=== PATIENT | male | born 1960 | race Caucasian/White ===

== ENCOUNTER 2019-09-10 17:57 | Emergency (ER) | payer OTHER ==
[2019-09-10] MEDS ORDERED: HYDROmorphone 1 MG/ML Syringe IM ONE (19:00)
--- NOTE | 2019-09-10 19:06 | EDM.PDOC ---
ED HPI GENERAL MEDICAL PROBLEM - General Chief Complaint: Upper Extremity Injury/Pain Stated Complaint: LEFT WRIST INJURY Time Seen by Provider: 09/10/19 18:50 Source of Information: Reports: Patient, RN History Limitations: Reports: Other (no old records) - History of Present Illness INITIAL COMMENTS - FREE TEXT/NARRATIVE: 58 yo male from the [facility] fell off a step stool just before arrival breaking his fall with his outstretched L hand. Presents with L wrist pain associated with slight L thumb numbness. His drove him here. No other injuries. Onset: Today Onset Date: 09/10/19 Duration: Hour(s):, Constant Location: Reports: Upper Extremity, Left Quality: Reports: Ache Severity: Moderate Improves with: Reports: Rest Worsens with: Reports: Movement Context: Reports: Trauma Associated Symptoms: Reports: No Other Symptoms Treatments [employer]IPAL [employer]CHITECT: Reports: Other (see below) (none) Left Wrist Pain Score (Numeric/FACES): 9 - Related Data Allergies Allergy/AdvReac Type Severity Reaction Status Date / Time No Known Allergies Allergy Verified 09/10/19 18:15 Home Meds: Home Meds Amphetamine/Dextroamphetamine [Adderall XR] 40 mg PO DAILY 09/10/19 [History] Aspirin [Halfprin] 81 mg PO BID 09/10/19 [History] FLUoxetine HCl [Fluoxetine] 3 tab PO DAILY 09/10/19 [History] Folic Acid 1 tab PO BID 09/10/19 [History] buPROPion [Wellbutrin SR] 3 tab PO DAILY 09/10/19 [History] predniSONE 2 tab PO ASDIRECTED 09/10/19 [History] Past Medical History HEENT History: Reports: Impaired Vision Cardiovascular History: Reports: Bypass Respiratory History: Reports: Sleep Apnea Other Respiratory History: cpap Gastrointestinal History: Reports: None Musculoskeletal History: Reports: Back Pain, Chronic, RA, Other (See Below) Other Musculoskeletal History: DDD Psychiatric History: Reports: Anxiety, PTSD Endocrine/Metabolic History: Reports: Obesity/BMI 30+ Immunologic History: Reports: Other (See Below) - Infectious Disease History Infectious Disease History: Reports: Chicken Pox - Past Surgical History Head Surgeries/Procedures: Reports: None HEENT Surgical History: Reports: None Cardiovascular Surgical History: Reports: Coronary Artery Bypass Other Cardiovascular Surgeries/Procedures: 2018 triple bypass Respiratory Surgical History: Reports: None GI Surgical History: Reports: Appendectomy, Cholecystectomy, Hernia, Abdominal Endocrine Surgical History: Reports: None Musculoskeletal Surgical History: Reports: Carpal Tunnel, Shoulder Surgery, Other (See Below) Dermatological Surgical History: Reports: None Social & Family History - Tobacco Use Smoking Status *Q: Former Smoker Used Tobacco, but Quit: Yes Month/Year Tobacco Last Used: 2009 Second Hand Smoke Exposure: No - Caffeine Use Caffeine Use: Reports: Coffee, Soda - Recreational Drug Use Recreational Drug Use: No Review of Systems - Review of Systems Review Of Systems: See Below Constitutional: Reports: No Symptoms Eyes: Reports: No Symptoms Musculoskeletal: Reports: Joint Pain (L wrist) Skin: Reports: No Symptoms Neurological: Reports: Numbness (L thumb only) ED EXAM, GENERAL - Physical Exam Exam: See Below Exam Limited By: No Limitations General Appearance: Alert, WD/WN, No Apparent Distress Eye Exam: Bilateral Eye: Normal Inspection Ears: Normal External Exam, Hearing Grossly Normal Ear Exam: Bilateral Ear: Auricle Normal, Canal Normal Nose: Normal Inspection, No Blood Throat/Mouth: Normal Inspection, Normal Lips, Normal Oropharynx, Normal Voice Head: Atraumatic, Normocephalic Neck: Normal Inspection Respiratory/Chest: No Respiratory Distress, No Accessory Muscle Use Cardiovascular: Regular Rate, Rhythm Extremities: Joint Swelling (subtle deformity/swelling of L wrist), Limited Range of Motion (due to pain). No: Non-Tender, Redness Neurological: Alert, Oriented, CN II-XII Intact, Normal Cognition, Other ( slight subjective L thumb numbness. ) Psychiatric: Normal Affect, Normal Mood Skin Exam: Warm, Dry, Intact, Normal Color, No Rash Course - Vital Signs Last Recorded V/S: Last Vital Signs Temp 35.3 C L 09/10/19 18:20 Pulse 79 09/10/19 18:20 Resp 16 09/10/19 18:20 BP 133/76 09/10/19 18:20 Pulse Ox 98 09/10/19 18:20 - Orders/Labs/Meds Orders: Active Orders 24 hr Category Date Time Status Wrist Comp Min 3V Lt [CR] Stat Exams 09/10/19 18:54 Taken Meds: Medications Discontinued Medications Generic Name Dose Route Start Last Admin Trade Name Freq PRN Reason Stop Dose Admin Hydromorphone HCl 1 mg 09/10/19 19:00 09/10/19 19:08 Dilaudid IM 09/10/19 19:01 1 mg ONETIME ONE Administration Ketorolac Tromethamine 60 mg 09/10/19 19:28 09/10/19 19:34 Toradol IM 09/10/19 19:29 60 mg ONETIME ONE Administration - Radiology Interpretation Free Text/Narrative:: L wrist [id number] avulsion fx Departure - Departure Time of Disposition: 19:50 Disposition: Home, Self-Care 01 Condition: Fair Clinical Impression: Wrist fracture, left Qualifiers: Encounter type: initial encounter Fracture type: closed Qualified Code(s): S62.102A - Fracture of unspecified carpal bone, left wrist, initial encounter for closed fracture - Discharge Information *PRESCRIPTION DRUG MONITORING PROGRAM REVIEWED*: Not Applicable *COPY OF PRESCRIPTION DRUG MONITORING REPORT IN PATIENT AUBREY: Not Applicable Instructions: Wrist Fracture Treated With Immobilization, [id number] Referrals: PCP,None [Primary Care Provider] - Forms: ED Department Discharge Additional Instructions: Wear splint at all times. Take ibuprofen 400 mg every 6 hrs with food for pain relief. Add either acetaminophen 1000 mg every 6 hrs OR [place] as directed for added relief. F/U with orthopedics within the week for definitive care, take your disc with your X-rays along for your appt. Avoid driving when taking the [place]. Keep wrist elevated to reduce swelling. Sepsis Event Note - Evaluation Sepsis Screening Result: No Definite Risk - Focused Exam Vital Signs: Vital Signs Temp Pulse Resp BP Pulse Ox 09/10/19 18:20 35.3 C L 79 16 133/76 98 09/10/19 18:14 35.3 C L 79 16 133/76 98 Date Exam was Performed: 09/10/19 Time Exam was Performed: 19:43 - My Orders Last 24 Hours: My Active Orders 09/10/19 18:54 Wrist Comp Min 3V Lt [CR] Stat - Assessment/Plan Last 24 Hours: My Active Orders 09/10/19 18:54 Wrist Comp Min 3V Lt [CR] Stat
[2019-09-10] MEDS ORDERED: Ketorolac 60 MG/2 ML SDV IM ONE (19:28)
--- NOTE | 2019-09-11 10:03 | CR ---
Wrist Comp Min 3V Lt CLINICAL HISTORY: Injury, pain FINDINGS: There is an ossific density just dorsal to the triquetrum which is suspect for an avulsion fracture. There is osteoarthritic change in the first carpal metacarpal junction. There is narrowing of the scapholunate joint space also felt to be degenerative. IMPRESSION: Avulsion fracture off the dorsum of the triquetrum Osteoarthritic changes
== END 2019-09-10 20:04 | disposition home or self-care (01) ==
LOC: JP.ED 17:57
DX: S62.112A Displaced fracture of triquetrum [cuneiform] bone, left wrist, initial encounter for closed fracture (principal); F41.9 Anxiety disorder, unspecified; E66.9 Obesity, unspecified; Z87.891 Personal history of nicotine dependence; Z79.82 Long term (current) use of aspirin; Z68.41 Body mass index [BMI] 40.0-44.9, adult; W10.9XXA Fall (on) (from) unspecified stairs and steps, initial encounter
CPT/HCPCS: 73110; 96372; 99283; J1170; J1885